=== PATIENT | female | born 1990 | race Caucasian/White ===

== ENCOUNTER 2021-09-06 06:03 | Day surgery (SDC) | payer OTHER ==
[~2021-09-06] VITALS: Ht 167.6 cm; Wt 80.0 kg
[~2021-09-06 06:03] MED LIST: SODIUM CHLORIDE 0.9% 1,000 ML ONE
[2021-09-06] MEDS ORDERED: LIDOCAINE 2% 30 ML JELLY TP ONE (06:04)
[2021-09-06] MEDS ORDERED: ALBUTEROL SULFATE 2.5 MG/0.5 ML NEB SOLUTION NEB ONE (06:04)
[2021-09-06] MEDS ORDERED: BENZOCAINE 20% 50 MCG/SPRAY 57 GM TP ONE (06:04)
[2021-09-06] MEDS ORDERED: SODIUM CHLORIDE 0.9% 1,000 ML IV ONE (06:30)
[2021-09-06 06:54] LABS: COVID AG,FIA SOURCE NASOPHARYNGEAL
[2021-09-06] MEDS ORDERED: FLUT16H NASAL (07:17)
[2021-09-06] MEDS ORDERED: DOXY100C5 PO (07:17)
[2021-09-06] MEDS ORDERED: CETI10TA58 PO (07:17)
[2021-09-06] MEDS ORDERED: PRED5TAB2 PO (07:17)
[2021-09-06] MEDS ORDERED: MYCO180T3 PO (07:17)
[2021-09-06] MEDS ORDERED: BECL10.62 IH (07:17)
[2021-09-06] MEDS ORDERED: FAMO20 PO (07:17)
[2021-09-06] MEDS ORDERED: HYDR200T4 PO (07:17)
[2021-09-06] MEDS ORDERED: MIDAZOLAM HCL 5 MG/ML VIAL ONE (08:11)
[2021-09-06] MEDS ORDERED: FentaNYL CITRATE PF 100 MCG/2 ML VIAL ONE (08:11)
[2021-09-06] MEDS ORDERED: MethylPREDNISolone SOD SUCC 125 MG/2 ML VIAL IVP ONE (09:00)
[2021-09-06] MEDS ORDERED: MethylPREDNISolone SOD SUCC 125 MG/2 ML VIAL ONE (09:30)
[2021-09-06] MEDS ORDERED: OXYGEN THERAPY IH SCH (20:00)
== END 2021-09-06 10:45 | disposition home or self-care (01) ==
LOC: SURGERY 06:03
PROVIDERS: ATTEND Internal Medicine Critical Care Medicine
DX: R05.3 Chronic cough (principal); R06.2 Wheezing; R04.2 Hemoptysis; Z20.822 Contact with and (suspected) exposure to COVID-19; J47.9 Bronchiectasis, uncomplicated; J34.89 Other specified disorders of nose and nasal sinuses; J38.4 Edema of larynx; B37.0 Candidal stomatitis; Z93.2 Ileostomy status
CPT/HCPCS: 31623; 31624; 71045; 84703; 87015; 87070; 87101; 87206; 87220; 87426; 88184; 88185; C9803; J2250; J2930; J3010; J7030; 88112; 88312; J7613